=== PATIENT | female | born 1990 | race Asian ===

== ENCOUNTER 2021-02-10 12:09 | Emergency (ER) | payer OTHER ==
[~2021-02-10] VITALS: Ht 152.4 cm; Wt 86.8 kg
[2021-02-10] MEDS ORDERED: KETOROLAC 30 MG/1 ML IM ONE (13:30)
[2021-02-10] MEDS ORDERED: KETOROLAC 30 MG/1 ML ONE (13:47)
[2021-02-10 13:53] LABS: BASOPHILS % (AUTO) 0 % (0-1); EOSINOPHILS % (AUTO) 1 % (1-7); LYMPHOCYTES % (AUTO) 19 % (22-44); MEAN CORPUSCULAR HEMOGLOBIN 29.9 pg (27.0-34.8); MEAN CORPUSCULAR HGB CONC 33.8 g/dL (32.4-35.8); MEAN PLATELET VOLUME 10.1 fL (7.4-10.4); MONOCYTES % (AUTO) 10 % (2-9); NEUTROPHILS % (AUTO) 70 % (42-75); PLATELET COUNT 224 x10^3/uL (130-400); RED BLOOD COUNT 4.99 x10^6/uL (3.82-5.3); RED CELL DISTRIBUTION WIDTH 13.2 % (9.6-15.2)
--- NOTE | 2021-02-10 13:55 | NUR ---
pt oob to give ua, labs pending/cxr pending. as
[2021-02-10 14:06] LABS: ALANINE AMINOTRANSFERASE 27 U/L (12-78); ALBUMIN 3.6 g/dL (3.4-5.0); ANION GAP 4 mmol/L (5-15); CALCIUM 10.1 mg/dL (8.5-10.1); CHLORIDE 111 mmol/L (98-107); CREATININE 0.83 mg/dL (0.55-1.02)
[2021-02-10 14:36] LABS: MICROSCOPIC NOT IND
[2021-02-10 15:30] VITALS: BP 132/71
[2021-02-10 15:41] LABS: ALKALINE PHOSPHATASE 126 U/L (45-117); BILIRUBIN,TOTAL 0.4 mg/dL (0.2-1.0); TOTAL PROTEIN 8.3 g/dL (6.4-8.2)
== END 2021-02-10 16:28 | disposition home or self-care (01) ==
LOC: ED 16:27
DX: J45.901 Unspecified asthma with (acute) exacerbation (principal); B34.9 Viral infection, unspecified; J00 Acute nasopharyngitis [common cold]; Z20.822 Contact with and (suspected) exposure to COVID-19
CPT/HCPCS: 36415; 71045; 80053; 81003; 84145; 85025; 93005; 96372; 99285; J1885; U0003; U0005